=== PATIENT | male | born 1950 | race Caucasian/White ===

== ENCOUNTER 2018-12-22 16:49 | Emergency (ER) | payer OTHER ==
[~2018-12-22] VITALS: Ht 167.6 cm; Wt 76.3 kg
[2018-12-22 17:30] VITALS: BP 155/91
[2018-12-22] MEDS ORDERED: [UNRECOGNIZED DRUG - CODE] PO (17:39)
[2018-12-22] MEDS ORDERED: ATRO1TAB PO (17:39)
[2018-12-22] MEDS ORDERED: FLUO10CA21 PO (17:39)
[2018-12-22] MEDS ORDERED: OMEP20TC10 PO (17:39)
[2018-12-22] MEDS ORDERED: MECL-270 PO (17:39)
[2018-12-22] MEDS ORDERED: TRAM50TA1 PO (17:39)
[2018-12-22] MEDS ORDERED: FERR325E14 PO (17:39)
[2018-12-22] MEDS ORDERED: BACL10TA4 PO (17:39)
[2018-12-22] MEDS ORDERED: IBUP-1842 PO (17:39)
--- NOTE | 2018-12-22 19:02 | NUR ---
PT TO ER BED 8
--- NOTE | 2018-12-22 19:40 | NUR ---
68 Y/O M PRESENTED TO ED WITH C/O POSTERIOR NECK PAIN X 2 WEEKS. AAOX4. PER PT " I SAW MY PRIMARY CARE DOCTOR AND HE SENT ME TO AN ONCOLOGIST WHO TOLD ME TO COME TO THE ED". BUMP NOTED TO SUPERVISOR SLITTING AND SHIPPING UPPER NECK. TENDER TO TOUCH. 8/10 PAIN, SHARP. LIMITED TO BILATERAL UPPER EXTREMETIES. STRONG AND EQUAL HAND GRASPS. BED IN LOWEST POSTION. BEDRAILS X1 UP. ERMD NOTIFIED. WILL CONTINUE TO MONITOR.
--- NOTE | 2018-12-22 20:18 | NUR ---
Patient being evaluated by Dr. Daniels at bedside.
[2018-12-22] MEDS ORDERED: MORPHINE SULFATE 4 MG/ML SYR IVP ONE (20:25)
--- NOTE | 2018-12-22 21:07 | NUR ---
Pt returned from CT and placed in bed 8.
[2018-12-22 21:10] LABS: BASOPHILS % (AUTO) 0.2 % (0.0-2.0); EOSINOPHILS # (AUTO) 0.2 K/uL (0-0.4); EOSINOPHILS % (AUTO) 2.8 % (0.0-4.0); HEMATOCRIT 48.4 % (36-52); HEMOGLOBIN 16.3 g/dL (12.0-18.0); LYMPHOCYTES # (AUTO) 1.6 K/uL (2.0-11.5); LYMPHOCYTES % (AUTO) 26.2 % (20.5-51.1); MEAN CORPUSCULAR HEMOGLOBIN 32 pg (27-31); MEAN CORPUSCULAR HGB CONC 34 g/dL (33-37); MEAN CORPUSCULAR VOLUME 95.6 fL (80-94); MONOCYTES # (AUTO) 0.4 K/uL (0.8-1.0); MONOCYTES % (AUTO) 5.9 % (1.7-9.3); NEUTROPHILS % (AUTO) 64.9 % (42.2-75.2); PLATELET COUNT (AUTO) 189 K/uL (140-450); RED BLOOD CELL COUNT(AUTO) 5.06 MIL/uL (4.20-6.10); RED CELL DISTRIBUTION WIDTH 13.9 % (11.6-13.7); WHITE BLOOD COUNT (AUTO) 6.1 K/uL (4.8-10.8)
[2018-12-22 21:21] LABS: ANION GAP 13.1 (8-16); CREATININE 0.8 mg/dL (0.7-1.3); POTASSIUM 4.1 mmol/L (3.5-5.1)
[2018-12-22 21:26] LABS: ALBUMIN 4.3 g/dL (3.4-5.0); TOTAL BILIRUBIN 0.3 mg/dL (0.0-1.0)
[2018-12-22 22:00] VITALS: BP 141/92
--- NOTE | 2018-12-22 22:00 | NUR ---
Patient discharged with v/s stable. Written and verbal after care instructions given and explained. Patient alert, oriented and verbalized understanding of instructions. Ambulatory with steady gait. All questions addressed prior to discharge. ID band removed. Patient advised to follow up with PMD. Rx of NORCO AND FLEXERIL given. Patient educated on indication of medication including possible reaction and side effects. Opportunity to ask questions provided and answered.
== END 2018-12-22 22:00 | disposition home or self-care (01) ==
LOC: MED 16:49
DX: M54.2 Cervicalgia (principal); K50.90 Crohn's disease, unspecified, without complications; Z79.899 Other long term (current) drug therapy
CPT/HCPCS: 36415; 70450; 72125; 72128; 80053; 83605; 85025; 87040; 87086; 96374; 99284; J2270